=== PATIENT | female | born 1930 | race Caucasian/White ===

== ENCOUNTER 2018-12-08 07:12 | Day surgery (SDC) | payer MEDICARE, BC ==
[~2018-12-08 07:12] MED LIST: Lactated Ringers 1,000 ML IV SCH; Lidocaine 1%/Sod Bicarbonate in NS 8.4% 1 ML Syringe IDERM PRN; Sodium Chloride 0.9% 10 ML Syringe FLUSH PRN
[2018-12-08] MEDS ORDERED: Lidocaine 1% with EPINEPHrine 1:100,000 20 ML MDV ONE ×2 (07:44→09:36)
[2018-12-08] MEDS ORDERED: Bupivacaine 0.5% 30 ML SDV ONE (07:44)
[2018-12-08] MEDS ORDERED: Bacitracin Oint 15 GM Tube ONE (08:00)
--- NOTE | 2018-12-08 08:12 | PCM.HP ---
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 No new symptoms. - Related Data Allergies/Adverse Reactions: Allergies Allergy/AdvReac Type Severity Reaction Status Date / Time cholestyramine AdvReac Nausea Verified 12/08/18 09:09 nitrofurantoin AdvReac Anxiety Verified 12/08/18 09:09 simvastatin AdvReac Anxiety Verified 12/08/18 09:09 Sulfa (Sulfonamide AdvReac Nausea Verified 12/08/18 09:09 Antibiotics) sulfamethoxazole AdvReac Nausea Verified 12/08/18 09:09 [From Bactrim] trimethoprim [From Bactrim] AdvReac Nausea Verified 12/08/18 09:09 Home Medications: Home Meds Ascorbic Acid [Vitamin C] 500 mg PO DAILY 12/05/18 [History] Ca Carbonate/Vitamin D3/Vit K [Calcium + D Soft Chewable Tab] 1 tab PO DAILY [History] Cholecalciferol (Vitamin D3) [Vitamin D3] 5,000 unit PO DAILY 12/05/18 [History] Denosumab [Prolia] 60 mg SQ ASDIRECTED 12/05/18 [History] Magnesium Oxide [Magnesium] 500 g PO DAILY 12/05/18 [History] Methotrexate 0.25 ml SQ FRSA 12/05/18 [History] Omeprazole 20 mg PO DAILY 12/05/18 [History] Omeprazole Magnesium [Prilosec Otc] 20 mg PO DAILY 12/05/18 [History] RX: Cranberry 400 mg PO DAILY 12/05/18 [History] RX: Folic Acid 0.8 mg PO DAILY 12/05/18 [History] RX: Multivitamin [Poly-Vitamin] 1 tab PO DAILY 12/05/18 [History] Valsartan/Hydrochlorothiazide [Diovan Hct 160-25 mg Tablet] 1 tab PO DAILY 12/05 [History] valACYclovir [Valtrex] 1,000 mg PO BID PRN 12/05/18 [History] Past Medical History HEENT History: Reports: Impaired Vision Cardiovascular History: Reports: Hypertension Respiratory History: Reports: None Gastrointestinal History: Reports: GERD Genitourinary History: Reports: Other (See Below) 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 Musculoskeletal History: Reports: RA Neurological History: Reports: None Psychiatric History: Reports: None Endocrine/Metabolic History: Reports: None Hematologic History: Reports: None Immunologic History: Reports: None Oncologic (Cancer) History: Reports: None Dermatologic History: Reports: None - Past Surgical History Head Surgeries/Procedures: Reports: None HEENT Surgical History: Reports: Eye Surgery Cardiovascular Surgical History: Reports: None Respiratory Surgical History: Reports: None GI Surgical History: Reports: Colonoscopy Endocrine Surgical History: Reports: None Neurological Surgical History: Reports: None Musculoskeletal Surgical History: Reports: Other (See Below) Other Musculoskeletal Surgeries/Procedures:: RIGHT FEMUR FRACTURE WITH REPAIR, HAND SURGERY, RIGHT TOTAL KNEE REPLACEMENT Oncologic Surgical History: Reports: None Dermatological Surgical History: Reports: None Social & Family History - Family History Family Medical History: Noncontributory - Tobacco Use Smoking Status *Q: Never Smoker - Caffeine Use Caffeine Use: Reports: Tea - Recreational Drug Use Recreational Drug Use: No Drug Use in Last 12 Months: No H&P Review of Systems - Review of Systems: Review Of Systems: See Below General: Reports: No Symptoms HEENT: Reports: No Symptoms Pulmonary: Reports: No Symptoms Cardiovascular: Reports: No Symptoms Gastrointestinal: Reports: No Symptoms Genitourinary: Reports: No Symptoms Musculoskeletal: Reports: Other (1/2 block claudication bilaterally) Skin: Reports: Other (basal cell carcinoma) Psychiatric: Reports: No Symptoms Neurological: Reports: No Symptoms Hematologic/Lymphatic: Reports: No Symptoms Immunologic: Reports: No Symptoms Exam - Exam Exam: See Below - Exam Quality Assessment: No: Supplemental Oxygen General: Alert, Oriented HEENT: Conjunctiva Clear, EOMI Neck: Supple Lungs: Normal Respiratory Effort GI/Abdominal Exam: No Distention Skin: Warm, Dry, Intact, Other (0.5mm lesion on the right cheek, scar on the left forehead with ) Neuro Extensive - Mental Status: Alert, Oriented x3, Normal Mood/Affect *Q Meaningful Use (ADM) - VTE Risk Assess *Q Each Risk Factor Represents 3 Points: Age 75 Years or Greater Total Score 3 Point Risk Factors: 3 - Problem List (1) Basal cell carcinoma of face SNOMED Code(s): 907306820 ICD Code: C44.310 - BASAL CELL CARCINOMA OF SKIN OF UNSPECIFIED PARTS OF FACE Status: Acute Current Visit: Yes Problem List Initiated/Reviewed/Updated: Yes Orders Last 24hrs: Active Orders 24 hr Category Date Time Status Peripheral IV Care [RC] . DIRECTED Care 12/08/18 00:01 Active Verify Patient Consent Obtain [RC] ASDIRECTED Care 12/08/18 00:01 Active Lactated Ringers [Ringers, Lactated] 1,000 ml Med 12/08/18 00:01 Active IV ASDIRECTED Lidocaine 1%/Sod Bicarbonate [Buffered Lidocaine 1% in Med 12/08/18 00:01 Active NS 8.4%] 0.25 ml IDERM ONETIME PRN Sodium Chloride 0.9% [Saline Flush] Med 12/08/18 00:01 Active 10 ml FLUSH ASDIRECTED PRN Medication Administration Instruction [OM.PC] Routine Oth 12/08/18 00:01 Ordered Peripheral IV Insertion Adult [OM.PC] Routine Oth 12/08/18 00:01 Ordered Medication Orders Lactated Ringer's (Ringers, Lactated) 1,000 mls @ 125 mls/hr IV ASDIRECTED FRANK Stop: 12/08/18 23:00 Lidocaine/Sodium Bicarbonate (Buffered Lidocaine 1% In Ns 8.4%) 0.25 ml IDERM ONETIME PRN PRN Reason: Prior to IV Start Stop: 12/08/18 18:00 Sodium Chloride (Saline Flush) 10 ml FLUSH ASDIRECTED PRN PRN Reason: Keep Vein Open Stop: 12/08/18 18:00 Assessment/Plan Comment:: 88 y/o lady with recurrent BCC of face - plan for excision under light MAC with frozen section Tabitha Mayfield MD General surgery
[2018-12-08] MEDS ORDERED: Lidocaine 1% 4 ML ONE (08:17)
[2018-12-08] MEDS ORDERED: fentaNYL 100 MCG/2 ML SDV ONE (08:17)
[2018-12-08] MEDS ORDERED: Propofol 200 MG/20 ML SDV ONE ×3 (08:17→10:15)
[2018-12-08] MEDS ORDERED: ceFAZolin 1 GM Vial ONE (08:17)
[2018-12-08] MEDS ORDERED: Midazolam 1 MG/ML 2 ML SDV ONE (08:18)
--- NOTE | 2018-12-08 09:05 | PCM.PREANE ---
Preanesthetic Assessment - Anesthesia/Transfusion/Family Hx Anesthesia History: Prior Anesthesia Reaction Type of Anesthesia Reaction: Excessive Somnolence - Review of Systems General: No Symptoms Pulmonary: No Symptoms Cardiovascular: No Symptoms Gastrointestinal: Other (GERD) Neurological: No Symptoms Other: Reports: None (Rheumatoid Arthritis) - Physical Assessment NPO Status Date: 12/07/18 NPO Status Time: 21:00 O2 Sat by Pulse Oximetry: 98 Respiratory Rate: 16 Vital Signs: Last Vital Signs Temp 36.4 C 12/08/18 07:35 Pulse 81 12/08/18 07:35 Resp 16 12/08/18 07:35 BP 178/94 H 12/08/18 07:35 Pulse Ox 98 12/08/18 07:35 Height: 1.65 m Weight: 54.885 kg ASA Class: 2 Mental Status: Alert & Oriented x3 Airway Class: Mallampati = 2 Thyro-Mental Finger Breadths: 3 Mouth Opening Finger Breadths: 3 ROM/Head Extension: Full Lungs: Clear to Auscultation, Normal Respiratory Effort Cardiovascular: Regular Rate, Regular Rhythm - Allergies Allergies/Adverse Reactions: Allergies Allergy/AdvReac Type Severity Reaction Status Date / Time cholestyramine Allergy Nausea Verified 12/05/18 13:06 nitrofurantoin Allergy Anxiety Verified 12/05/18 13:06 simvastatin Allergy Anxiety Verified 12/05/18 13:06 Sulfa (Sulfonamide Allergy Nausea Verified 12/05/18 13:06 Antibiotics) sulfamethoxazole Allergy Nausea Verified 12/05/18 13:06 [From Bactrim] trimethoprim [From Bactrim] Allergy Nausea Verified 12/05/18 13:06 - Acknowledgements Anesthesia Type Planned: MAC Pt an Appropriate Candidate for the Planned Anesthesia: Yes Alternatives and Risks of Anesthesia Discussed w Pt/Guardian: Yes Pt/Guardian Understands and Agrees with Anesthesia Plan: Yes PreAnesthesia Questionnaire HEENT History: Reports: Impaired Vision Cardiovascular History: Reports: Hypertension Respiratory History: Reports: None Gastrointestinal History: Reports: GERD Genitourinary History: Reports: Other (See Below) 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 Musculoskeletal History: Reports: RA Neurological History: Reports: None Psychiatric History: Reports: None Endocrine/Metabolic History: Reports: None Hematologic History: Reports: None Immunologic History: Reports: None Oncologic (Cancer) History: Reports: None Dermatologic History: Reports: None - Past Surgical History Head Surgeries/Procedures: Reports: None HEENT Surgical History: Reports: Eye Surgery Cardiovascular Surgical History: Reports: None Respiratory Surgical History: Reports: None GI Surgical History: Reports: Colonoscopy Endocrine Surgical History: Reports: None Neurological Surgical History: Reports: None Musculoskeletal Surgical History: Reports: Other (See Below) Other Musculoskeletal Surgeries/Procedures:: RIGHT FEMUR FRACTURE WITH REPAIR, HAND SURGERY, RIGHT TOTAL KNEE REPLACEMENT Oncologic Surgical History: Reports: None Dermatological Surgical History: Reports: None - SUBSTANCE USE Smoking Status *Q: Never Smoker Recreational Drug Use History: No - HOME MEDS Home Medications: Home Meds Ascorbic Acid [Vitamin C] 500 mg PO DAILY 12/05/18 [History] Ca Carbonate/Vitamin D3/Vit K [Calcium + D Soft Chewable Tab] 1 tab PO DAILY [History] Cholecalciferol (Vitamin D3) [Vitamin D3] 5,000 unit PO DAILY 12/05/18 [History] Cranberry 400 mg PO DAILY 12/05/18 [History] Denosumab [Prolia] 60 mg SQ ASDIRECTED 12/05/18 [History] Folic Acid 0.8 mg PO DAILY 12/05/18 [History] Magnesium Oxide [Magnesium] 500 g PO DAILY 12/05/18 [History] Methotrexate 0.25 ml SQ FRSA 12/05/18 [History] Multivitamin [Poly-Vitamin] 1 tab PO DAILY 12/05/18 [History] Omeprazole 20 mg PO DAILY 12/05/18 [History] Omeprazole Magnesium [Prilosec Otc] 20 mg PO DAILY 12/05/18 [History] Valsartan/Hydrochlorothiazide [Diovan Hct 160-25 mg Tablet] 1 tab PO DAILY 12/05 [History] valACYclovir [Valtrex] 1,000 mg PO BID PRN 12/05/18 [History] - CURRENT (IN HOUSE) MEDS Current Meds: Current Medications Lactated Ringer's (Ringers, Lactated) 1,000 mls @ 125 mls/hr IV ASDIRECTED FRANK Stop: 12/08/18 23:00 Lidocaine/Sodium Bicarbonate (Buffered Lidocaine 1% In Ns 8.4%) 0.25 ml IDERM ONETIME PRN PRN Reason: Prior to IV Start Stop: 12/08/18 18:00 Sodium Chloride (Saline Flush) 10 ml FLUSH ASDIRECTED PRN PRN Reason: Keep Vein Open Stop: 12/08/18 18:00 Discontinued Medications Bacitracin (Bacitracin Oint) Confirm Administered Dose 15 gm .ROUTE .STK-MED ONE Stop: 12/08/18 08:01 Bupivacaine HCl (Marcaine 0.5%) Confirm Administered Dose 30 ml .ROUTE .STK-MED ONE Stop: 12/08/18 07:45 Cefazolin Sodium (Ancef) Confirm Administered Dose 2 gm .ROUTE .STK-MED ONE Stop: 12/08/18 08:18 Fentanyl (Sublimaze) Confirm Administered Dose 100 mcg .ROUTE .STK-MED ONE Stop: 12/08/18 08:18 Lidocaine HCl (Xylocaine-Mpf 1%) Confirm Administered Dose 4 mls @ as directed .ROUTE .STK-MED ONE Stop: 12/08/18 08:18 Lidocaine/Epinephrine (Xylocaine 1% With Epinephrine 1:100,000) Confirm Administered Dose 20 ml .ROUTE .STK-MED ONE Stop: 12/08/18 07:45 Midazolam HCl (Versed 1 Mg/Ml) Confirm Administered Dose 2 mg .ROUTE .STK-MED ONE Stop: 12/08/18 08:19 Propofol (Diprivan 20 Ml) Confirm Administered Dose 200 mg .ROUTE .STK-MED ONE Stop: 12/08/18 08:18
[2018-12-08] MEDS ORDERED: Lactated Ringers 1,000 ML ONE (10:41)
--- NOTE | 2018-12-08 10:47 | PCM.PRNOTE ---
- Free Text/Narrative Note: Operative Report Date of surgery: December 08, 2018 Preoperative diagnosis: . Recurrent basal cell carcinoma of the face Postoperative diagnosis: same Procedure: Excision of basal cell carcinoma from the face Surgeon: Dr. Tabitha Mayfield Anesthesia: MAC and local Deployment Manager: Delores Loza CRNA Estimated blood loss: 10 mL IV fluids: 1200 mL Urine output: 0 mL Drains and lines: None Findings: . Recurrent basal cell carcinoma in the left forehead, recurrent basal cell carcinoma of the right cheek Pathology: 1. 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 Superior medial margin of the left forehead lesion Indication for the procedure: . The patient is an 88-year-old female who presented to my office with biopsy-proven recurrent basal cell carcinoma of the left forehead and right face. The left forehead lesion was very irregular and difficult to appreciate margins based on the fact that it was surrounding a previous excision scar. The right cheek lesion was more well defined. The patient's medical comorbidities and age made it necessary for light sedation. The patient was consented for excision under Mac anesthesia with frozen section to determine margins. The patient's written consent was obtained. Description of the procedure: The patient was brought to the outpatient holding area on the day for procedure history and physical were placed on the chart and her consent was present. Using back to the operating room placed in supine position on the operating table. Due to the nature of the procedure, no preoperative antibiotics were administered. She had successful induction of Mac anesthesia. We began by marking the area involving the scar on the left forehead. A ellipse of skin including the lesion and previous scar was excised measuring proximal to 0.5 x 1.8 cm to a depth of 4 mm. This was marked with a stitch and sent to pathology to be examined. Hemostasis was achieved and the incision was left as is until the pathology results were received. We then turned our attention to the right cheek. The lesion was circular and easy to identify. An incision was then marked with an ellipse of skin for closure. A 2.4 cm x 0.8 cm ellipse of skin was removed. A depth of 0.3 cm. This was marked with a marking stitch and sent for pathology and frozen section. Hemostasis was achieved and the incision was also left open. Pathology reported that the superior medial margin of the left forehead lesion was positive for basal cell carcinoma and it is additional margin of tissue was taken from the superior edge of the incision measuring 2.5 cm by 3 mm. This is marked in ink and sent to pathology. This final margin was negative. We lengthened the incision by an additional 0.5 cm to facilitate closure of this forehead lesion. Deep dermal sutures of 4-0 Vicryl were placed to reapproximate the skin in the correct orientation. And the incision was then reapproximated using interrupted 5-0 Prolene sutures. The incision on the right cheek was reapproximated using 5-0 Prolene sutures. Bacitracin and a dry dressing were then applied to both incisions. The patient tolerated the procedure well and was awakened from MAC anesthesia. She was transported to the recovery area in stable condition. All sponge and needle counts correct. Disposition: Stable to PACU Recommendation: Follow up for suture removal in 2 weeks (prolonged duration for sutures due to the patient's immune modulating much keep medications and age). Review final pathology at that time. Tabitha Mayfield MD General Surgery
--- NOTE | 2018-12-08 10:47 | PCM.OPNOTE ---
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 Basal cell carcinoma of left forehead 2. Basal cell carcinoma of right cheek 3. Superomedial margin of left forehead lesion Fluid Replacement, Intraop: 1,200 EBL in mLs: 10 Complications: none apparent Condition: Good
--- NOTE | 2018-12-08 10:53 | PCM48HPAN ---
Post Anesthesia Note - EVALUATION WITHIN 48HRS OF ANESTHETIC Vital Signs in Normal Range: Yes Patient Participated in Evaluation: Yes Respiratory Function Stable: Yes Airway Patent: Yes Cardiovascular Function Stable: Yes Hydration Status Stable: Yes Pain Control Satisfactory: Yes Nausea and Vomiting Control Satisfactory: Yes Mental Status Recovered: Yes Pulse Rate: 73 SaO2: 100 Resp Rate: 16 Temperature: 36.6 C Blood Pressure: 160/74
== END 2018-12-08 12:45 | disposition home or self-care (01) ==
LOC: JD.SDS 07:12
PROVIDERS: ATTEND Surgery
DX: C44.319 Basal cell carcinoma of skin of other parts of face (principal); I10 Essential (primary) hypertension; K21.9 Gastro-esophageal reflux disease without esophagitis; M06.9 Rheumatoid arthritis, unspecified; Z88.2 Allergy status to sulfonamides; Z88.1 Allergy status to other antibiotic agents; Z88.8 Allergy status to other drugs, medicaments and biological substances; Z79.899 Other long term (current) drug therapy
CPT/HCPCS: 11643; 11646; 12052; 88305; A9270; J0690; J2001; J2250; J2704; J7120; 00300; J3010; J3490